=== PATIENT | male | born 1955 | race African-American/Black ===

== ENCOUNTER 2021-09-21 14:36 | Emergency (ER) | payer MEDICARE, MEDICAID ==
[~2021-09-21] VITALS: Ht 182.9 cm; Wt 83.0 kg
[2021-09-21] MEDS ORDERED: HYDROCODONE/ACETAMINOPHEN 5/325MG TABLET PO ONE (15:15)
[2021-09-21] MEDS ORDERED: HYDR-4001 MT (18:14)
[2021-09-21] MEDS ORDERED: LIDO1ADH23 TP (18:14)
[2021-09-21 19:01] VITALS: BP 147/53
== END 2021-09-21 19:02 | disposition home or self-care (01) ==
LOC: ER 14:36
DX: S09.8XXA Other specified injuries of head, initial encounter (principal); S16.1XXA Strain of muscle, fascia and tendon at neck level, initial encounter; V49.59XA Passenger injured in collision with other motor vehicles in traffic accident, initial encounter; Y93.89 Activity, other specified; Y92.89 Other specified places as the place of occurrence of the external cause; Y99.8 Other external cause status; Z98.890 Other specified postprocedural states
CPT/HCPCS: 71101; 73030; 73562; 99284